=== PATIENT | male | born 1990 | race Asian ===

== ENCOUNTER 2019-10-08 21:25 | Emergency (ER) | payer MEDICAID ==
[~2019-10-08] VITALS: Ht 167.6 cm; Wt 73.0 kg
[2019-10-09 00:01] VITALS: BP 142/97
== END 2019-10-09 00:09 | disposition home or self-care (01) ==
LOC: ER 21:25
DX: R00.0 Tachycardia, unspecified (principal); F20.9 Schizophrenia, unspecified; G40.909 Epilepsy, unspecified, not intractable, without status epilepticus; F41.9 Anxiety disorder, unspecified
CPT/HCPCS: 93005; 99283

== ENCOUNTER 2021-07-13 21:18 | Emergency (ER) | payer MEDICAID ==
[~2021-07-13] VITALS: Ht 167.6 cm; Wt 66.0 kg
[2021-07-13 23:22] LABS: BASOPHILS % 0.5 % (0.0-2.0); EOSINOPHILS % 0.3 % (0.0-5.0); HEMATOCRIT. 44.3 % (42.0-52.0); HEMOGLOBIN. 14.6 g/dL (14.0-18.0); LYMPHOCYTES % 16.6 % (20.0-50.0); MEAN CORPUSCULAR HEMOGLOBIN 31.1 pg (28.0-32.0); MEAN CORPUSCULAR VOLUME 93.9 fL (80.0-94.0); MEAN PLATELET VOLUME 7.7 fl (7.4-10.4); MONOCYTES % 10.6 % (2.0-8.0); PLATELET 254 x1000/uL (130-400); RED BLOOD CELL COUNT 4.71 mill/uL (4.7-6.1); RED CELL DISTRIBUTION WIDTH 14.1 % (11.6-14.6)
[2021-07-13 23:27] LABS: CHLORIDE 106 mEq/L (98-107)
[2021-07-13 23:34] LABS: ETHANOL BLOOD < 10 mg/dL
[2021-07-14] MEDS ORDERED: NALO4SPR BOTHNSTRLS (02:45)
[2021-07-14 02:53] VITALS: BP 130/82
== END 2021-07-14 03:08 | disposition home or self-care (01) ==
LOC: ER 21:18
DX: T40.711A Poisoning by cannabis, accidental (unintentional), initial encounter (principal); R55 Syncope and collapse; Y92.89 Other specified places as the place of occurrence of the external cause
CPT/HCPCS: 36415; 71045; 80053; 80320; 85025; 93005; 99285; G0480